=== PATIENT | male | born 1945 | race Caucasian/White ===

== ENCOUNTER 2016-09-16 13:48 | Emergency (ER) | payer MEDICARE, OTHER ==
[~2016-09-16 13:48] MED LIST: ACULARLS OPH; ALDACTAZID25 MG/25 M PO; ALPHAGAN P0.1 % OPH; ASA5GR PO; ASAB PO; BESIVANCE0.6 % OPH; BYSTOLIC2.5 MG PO; BYSTOLIC5 MG PO; CAT1 PO; DIOVAN320 MG PO; EXFORGE1 TA3 PO; HYGROTON 25 MG25 MG OR; LIPITOR10 PO; LOP25 PO; NEXIUM40 PO; NITROSTAT0.4 MG SL; NORV5 PO; PLAVIX PO; PREDFORTE OPH; PRILOSEC40 MG PO; SPIRO25 PO; T PO; TEKTUR150 PO; TEKTURNA HCT1 TA3 PO; TOBREX OPH OP; ULORIC80 MG PO; XALAT OPH
[2016-09-16 14:52] LABS: BASOPHILS 0.2 %; BASOPHILS ABSOLUTE 0.01 10/3/uL (0.0-0.16); EOSINOPHILS 1.1 %; EOSINOPHILS ABSOLUTE 0.07 10/3/uL (0.0-0.53); ER CBC TAT 0 Hrs 05 Mins; HEMATOCRIT 38.1 % (40.0-51.0); HEMOGLOBIN 12.8 g/dL (13.6-17.8); IMMATURE GRANULOCYTES 0.3 %; IMMATURE GRANULOCYTES ABSOLUTE 0.02 10/3/uL (0.0-0.11); LYMPHOCYTES ABSOLUTE 1.75 10/3/uL (0.67-4.30); MANUAL DIFF NO %; MEAN CORPUS HGB CONC 33.6 g/dL (32.0-36.0); MEAN CORPUSCULAR HEMOGLOB 28.4 pg (26.0-34.0); MEAN CORPUSCULAR VOLUME 84.7 fL (80-100); MONOCYTES 10.4 %; MONOCYTES ABSOLUTE 0.65 10/3/uL (0.21-1.20); NEUTROPHILS ABSOLUTE 3.75 10/3/uL (2.02-8.40); PLATELET COUNT 215 10/3/uL (150-400); RBC DISTRIBUTION WIDTH 14.1 % (12.0-16.0); WHITE BLOOD CELLS 6.3 10/3/uL (4.5-10.5)
[2016-09-16 15:08] LABS: BUN (BLOOD UREA NITROGEN) 25 MG/DL (6-23); CHEST PAIN PROFILE TAT 0 Hrs 21 Mins; CHLORIDE, SERUM 107 MMOL/L (96-112); CO2 (CARBON DIOXIDE) 25 MMOL/L (24-34); CREATININE 1.33 MG/DL (0.70-1.30); GFR AFRICAN AMERICAN 62 ML/MIN (>=60); GFR NON AFRICAN AMERICAN 53 ML/MIN (>=60); GLUCOSE, SERUM 89 MG/DL (60-99); SODIUM, SERUM 141 MMOL/L (135-148); TROPONIN I <0.02 NG/ML (<0.05)
[2016-09-16 15:45] LABS: PROTIME (NOT ORD) 13.4 SEC (12.0-14.5)
[2016-09-16 15:46] LABS: PARTIAL THROMBO TIME 28.1 SEC (22.5-37.2)
== END 2016-09-16 17:14 | disposition home or self-care (01) ==
LOC: ER 13:48
PROVIDERS: Emergency Medicine
DX: G58.8 Other specified mononeuropathies (principal); I10 Essential (primary) hypertension; I73.9 Peripheral vascular disease, unspecified; M79.1 Myalgia; Z86.73 Personal history of transient ischemic attack (TIA), and cerebral infarction without residual deficits; Z87.891 Personal history of nicotine dependence; Z79.82 Long term (current) use of aspirin
CPT/HCPCS: 80048; 83735; 84484; 85025; 85610; 85730; 93005; 93971; 96365; 96375; 99284; J1200; J1885; J2800; J2930